=== PATIENT | female | born 1995 | race African-American/Black ===

== ENCOUNTER 2020-09-22 12:00 | Emergency (ER) | payer OTHER ==
[~2020-09-22] VITALS: Ht 170.2 cm; Wt 104.3 kg
[2020-09-22 12:19] VITALS: BP 134/81
--- NOTE | 2020-09-22 12:19 | NUR ---
Patient discharged to home in stable condition. Written and verbal after care instructions given. Patient verbalizes understanding of instruction.
== END 2020-09-22 12:20 ==
LOC: ER 12:03
DX: S00.83XA Contusion of other part of head, initial encounter (principal); M25.532 Pain in left wrist; F20.9 Schizophrenia, unspecified; X58.XXXA Exposure to other specified factors, initial encounter; Y93.89 Activity, other specified; Y92.89 Other specified places as the place of occurrence of the external cause; Y99.8 Other external cause status